=== PATIENT | female | born 1995 | race Two or more races ===

== ENCOUNTER 2020-05-01 10:26 | Outpatient (REF) | payer OTHER, SELFPAY | END 2020-05-01 10:27 | disposition home or self-care (01) | LOC: HO.LAB 10:26 | PROVIDERS: Visit Provider Internal Medicine | DX: Z20.828 Contact with and (suspected) exposure to other viral communicable diseases (principal) | CPT/HCPCS: C9803; U0003 ==

== ENCOUNTER 2021-01-28 10:34 | Outpatient (REF) | payer OTHER, SELFPAY ==
[2021-01-28 11:09] LABS: MANUAL DIFF FLAG NO
[2021-01-28 11:11] LABS: Basophils Percent Auto 0.4 % (0-2); Eosinophils Absolute Auto 0.1 X10*3/uL (0.0-0.4); Eosinophils Percent Auto 1.9 % (0-4); Hematocrit 37.3 % (37-47); Hemoglobin 12.4 g/dl (12.0-16.0); Imm Gran Abs Auto 0.03 X10*3/uL (0.00-0.03); Imm Gran Pct Auto 0.4 % (0.0-0.4); Lymphocytes Absolute Auto 1.6 X10*3/uL (1.2-4.9); Lymphocytes Percent Auto 21.1 % (20-40); Mean Corpuscular HGB Conc 33.2 g/dl (31.0-35.0); Mean Corpuscular Hemoglobin 30.5 pg (27.0-33.0); Mean Corpuscular Volume 91.9 fL (80-98); Mean Platelet Volume 10.4 fL (9.4-12.3); Monocytes Absolute Auto 0.5 X10*3/uL (0.1-1.2); Monocytes Percent Auto 6.5 % (2-11); Neutrophils Absolute Auto 5.2 X10*3/uL (2.0-8.3); Neutrophils Percent Auto 69.7 % (45-73); Platelet Count 349 X10*3/uL (160-400); Red Blood Count 4.06 X10*6/uL (4.20-5.50); Red Cell Distribution Width 12.5 % (11.0-16.0); White Blood Count 7.5 X10*3/uL (4.8-10.8)
[2021-01-28 12:44] LABS: Folate 14.4 ng/mL (> or = 4.0); Vitamin B12 526 pg/mL (200-900)
[2021-01-28 14:08] LABS: Alanine Aminotransferase 9 U/L (0-31); Albumin Level 4.5 g/dL (3.5-5.0); Alkaline Phosphatase 53 U/L (39-117); Anion Gap 12 (12-20); Aspartate Amino Transferase 14 U/L (5-31); Blood Urea Nitrogen 13 mg/dL (9-16); Calcium 9.3 mg/dL (8.4-10.2); Carbon Dioxide 23 mmol/L (22-29); Chloride 109 mmol/L (96-108); Cholesterol 103 mg/dL; Estimated Glomerular Filt Rate > 60; Glucose Fasting 90 mg/dL (60-99); HDL Cholesterol 56 mg/dL; LDL Cholesterol Calculated 42 mg/dl; Potassium 4.7 mmol/L (3.3-5.1); Sodium 139 mmol/L (135-145); Total Protein 7.1 g/dL (6.5-8.0); Triglycerides 28 mg/dL
[2021-01-28 14:31] LABS: TSH reflex Free T4 1.24 uIU/mL (0.32-4.0); Vitamin D 25-OH Total 27.4 ng/mL (>30)
[2021-01-29 14:01] LABS: Leukocytes Stool Qualitative NEGATIVE (NEGATIVE)
== END 2021-01-28 10:35 | disposition home or self-care (01) ==
LOC: HO.LAB 10:34
PROVIDERS: PCP Internal Medicine; Visit Provider Nurse Practitioner Family
DX: R10.9 Unspecified abdominal pain (principal)
CPT/HCPCS: 36415; 80053; 80061; 82306; 82607; 82746; 84443; 85025; 87045; 87046; 87177; 87209; 89055

== ENCOUNTER 2021-01-31 15:28 | Outpatient (REF) | payer OTHER, SELFPAY | END 2021-01-31 15:29 | disposition home or self-care (01) | LOC: HO.LAB 15:28 | PROVIDERS: PCP Internal Medicine; Visit Provider Internal Medicine | DX: Z20.822 Contact with and (suspected) exposure to COVID-19 (principal) | CPT/HCPCS: C9803; U0003; U0005 ==

== ENCOUNTER 2021-02-05 09:25 | Outpatient (REF) | payer OTHER, SELFPAY | END 2021-02-05 09:26 | disposition home or self-care (01) | LOC: HO.LAB 09:25 | PROVIDERS: PCP Internal Medicine; Visit Provider Internal Medicine | DX: Z20.822 Contact with and (suspected) exposure to COVID-19 (principal) | CPT/HCPCS: C9803; U0003; U0005 ==

== ENCOUNTER 2021-02-08 11:20 | Outpatient (REF) | payer OTHER, SELFPAY ==
[2021-02-08 12:16] LABS: COVID-19 Test Negative (Negative)
== END 2021-02-08 11:21 | disposition home or self-care (01) ==
LOC: HO.LAB 11:20
PROVIDERS: PCP Internal Medicine; Visit Provider Internal Medicine
DX: Z20.822 Contact with and (suspected) exposure to COVID-19 (principal)
CPT/HCPCS: 36415; 87635; C9803

== ENCOUNTER 2021-06-04 12:04 | Outpatient (REF) | payer OTHER, SELFPAY ==
--- NOTE | ~2021-06-04 | XR_ITS ---
EXAMINATION: 1. Radiographs left elbow 2. Radiographs left wrist/hand CLINICAL INFORMATION: Pain COMPARISON: Radiographs of the left elbow and left wrist 05/27/2011 TECHNIQUE: 3 views of the left elbow and 4 views of the left wrist/hand were obtained. FINDINGS: Left elbow: No fracture or dislocation. No elbow joint effusion. No significant degenerative changes of the left elbow. No focal soft tissue swelling. No radiopaque foreign body. Left wrist/hand: Visualized portion of the distal left radius and ulna demonstrate no fracture. Carpal rows are well aligned. No carpal bone fracture. No metacarpal or phalangeal fracture. No appreciable degenerative changes of the left wrist or hand. No focal soft tissue swelling. No radiopaque foreign body. XR/XR elbow LT 2V IMPRESSION: -Unremarkable radiographs of the left elbow. -Unremarkable radiographs of the left wrist/hand.
--- NOTE | ~2021-06-04 | XR_ITS ---
EXAMINATION: 1. Radiographs left elbow 2. Radiographs left wrist/hand CLINICAL INFORMATION: Pain COMPARISON: Radiographs of the left elbow and left wrist 05/27/2011 TECHNIQUE: 3 views of the left elbow and 4 views of the left wrist/hand were obtained. FINDINGS: Left elbow: No fracture or dislocation. No elbow joint effusion. No significant degenerative changes of the left elbow. No focal soft tissue swelling. No radiopaque foreign body. Left wrist/hand: Visualized portion of the distal left radius and ulna demonstrate no fracture. Carpal rows are well aligned. No carpal bone fracture. No metacarpal or phalangeal fracture. No appreciable degenerative changes of the left wrist or hand. No focal soft tissue swelling. No radiopaque foreign body. XR/XR hand wrist LT IMPRESSION: -Unremarkable radiographs of the left elbow. -Unremarkable radiographs of the left wrist/hand.
== END 2021-06-04 12:05 | disposition home or self-care (01) ==
LOC: HO.XRAY 12:04
PROVIDERS: PCP Internal Medicine; Visit Provider Physician Assistant
DX: M25.532 Pain in left wrist (principal); M25.522 Pain in left elbow
CPT/HCPCS: 73070; 73110; 73130

== ENCOUNTER 2021-06-10 08:17 | Outpatient (REF) | payer OTHER, SELFPAY ==
[2021-06-10 09:05] LABS: C Reactive Protein 3.61 mg/dL (< or = 0.50); Rheumatoid Factor < 15.0 IU/mL (<15.0)
[2021-06-10 09:30] LABS: Thyroid Stimulating Hormone 0.89 uIU/mL (0.32-4.0)
[2021-06-10 09:34] LABS: Erythrocyte Sedimentation Rate 8 MM/HR (0-20)
[2021-06-12 13:11] LABS: Anti Nuclear Antibody Screen NEGATIVE (NEGATIVE)
[2021-06-14 13:36] LABS: Vitamin D 25-OH, D2 <4 ng/mL; Vitamin D 25-OH, D3 39 ng/mL; Vitamin D 25-OH, Total 39 ng/mL (30-100)
== END 2021-06-10 08:18 | disposition home or self-care (01) ==
LOC: HO.LAB 08:17
PROVIDERS: PCP Internal Medicine; Visit Provider Internal Medicine
DX: M25.532 Pain in left wrist (principal); M25.522 Pain in left elbow; E55.9 Vitamin D deficiency, unspecified; L65.9 Nonscarring hair loss, unspecified; R21 Rash and other nonspecific skin eruption
CPT/HCPCS: 36415; 82306; 84443; 85652; 86038; 86039; 86140; 86431

== ENCOUNTER 2021-07-25 08:18 | Outpatient (REF) | payer OTHER, SELFPAY ==
--- NOTE | 2021-07-25 08:20 | EMG_ITS ---
left median and ulnar motor and sensory studies were performed. Left radial sensory study was performed and paraspinal muscles were tested. IMPRESSION: Mild left ulnar neuropathy across cubital tunnel. MD GRISELDA Roberto/ELODIA / [phone]
== END 2021-07-25 08:19 | disposition home or self-care (01) ==
LOC: HO.NEURO 08:18
PROVIDERS: PCP Internal Medicine; Visit Provider Physician Assistant
DX: R20.2 Paresthesia of skin (principal); R20.0 Anesthesia of skin
CPT/HCPCS: 95886; 95909

== ENCOUNTER 2021-09-10 08:00 | Outpatient (RCR) | payer OTHER, SELFPAY ==
--- NOTE | 2021-08-13 08:48 | MHC.OT.OEV ---
[address] [phone] F: [phone] Occupational Therapy Evaluation Diagnosis: L ARM/ELBOW PAIN Date of Onset: 05/11/20 Attending Provider: Florin Rojo Prescribed Treatment: EVAL AND TREAT History of Current Condition: REPORTS INCREASED NUMBNESS, TINGLING AND SOME PAIN THROUGH LEFT ARM, PARTICULARLY ELBOW THROUGH WRIST, BEGINNING IN MAY 2020. DENIES NEW HOBBY, CHANGE IN ROUTINE OR MECHANISM OF INJURY. PREVIOUSLY HAD AN INJURY SEVEN OR EIGHT YEARS AGO IN WHICH SHE CAUGHT A FAST SOFTBALL IN HER LEFT HAND. SYMPTOMS HAD IMPROVED AFTER THAT INITIAL INJURY. NOW EXPERIENCES NUMBNESS AND TINGLING WORSE WHEN SLEEPING AND EXERCISING. EMG 07/25/21 REVEALS Mild left ulnar neuropathy across cubital tunnel. HAS TRIED CHIROPRACTIC SERVICES IN THE PAST, DISCONTINUED APRIL 2021. WAS ATTENDING WEEKLY. Significant Medical History: N/A Precautions/Contraindications: UNIVERSAL Patient Goals: TO GET LEFT ARM STRONGER Hand Dominance: Right QuickDASH Score: 34% Prior Level of Function and Occupation Self Care, Employment, Leisure: WORKS AT A [employer]. 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 HOBBIES INCLUDE EXERCISING INCLUDING STRENGTH TRAINING, RUNNING ABOUT 5-6 DAYS A WEEK Living Situation, Family and/or Social Support: LIVES WITH MOTHER AND YOUNGER SISTER Current Level of Function and Occupation Self Care, Employment, Leisure: TROUBLE WITH LIFTING WEIGHTS, GRASPING ONTO SOFTBALL BAT. SOME INCREASED NUMBNESS/ TINGLING WITH HOLDING ITEMS DURING IADLs. Sleep: OCCASIONALLY WAKES WITH PAIN AND PINS/NEEDLES IN FOREARM. SLEEPS ON STOMACH, ELBOW FLEXED. Driving: ALTERNATES USE OF LEFT AND RIGHT ARM WITH HOLDING STEERING WHEEL. FATIGUES EASILY. Pain Assessment Pain Score: Pain Scale Used: Numeric (0 - 10) Pain Location and Description: L FOREARM, THENAR EMINENCE; NUMBNESS/TINGLING MILD AT REST; MODERATE TO SEVERE AT TIMES MOST OFTEN NO PAIN Aggravating Factors: SLEEPING, LIFTING/ CARRYING ITEMS Alleviating Factors: REPOSITIONING SELF, ICE, MUSCLE RELAXOR; WEARING WRIST BRACE WHEN PLAYING SOFTBALL Skin and Soft Tissue Assessment Skin and Soft Tissue: Comments: PETITE FRAME. NO SIGNS OF MUSCLE ATROPHY THROUGH LUE YET STATES INCREASED DIFFICULTIES WITH WEIGHT LIFTING AND EXPERIENCING FATIGUE THROUGH LUE. Nerve assessment Ulnar Nerve: Left Impaired Median Nerve: Radial Nerve: Comments: IDENTIFIED ON EMG REPORT; CONTINUE TO ASSESS FOR ADDITIONAL NERVE IMPINGEMENT AREAS Sensory Assessment Temperature: Light Touch: Proprioception: Vibration: Comments: SEMMES BARBARA INTACT IN ALL AREAS; REPORTS SOME SENSITIVITIES TO VIBRATION, REBOUND FROM SOFTBALL CAUGHT IN LEFT HAND Edema Assessment Upper Extremity: WNL Lower Extremity: Comments: CIRCUMFERENCE OF WRIST, DISTAL TO US: LEFT 13.4 CM, RIGHT 13.7 CM Dexterity Assessment Dexterity: WNL Comments: Special Tests Comments: (+) TINELS AT ELBOW AROM(PROM) Strength Shoulder Flexion: Extension: Abduction: Internal Rotation: External Rotation: Comments: WNL Flexion: L 5/5, R 5/5 Extension: Abduction: L 5/5, L5/5 Internal Rotation: External Rotation: Comments: Elbow Flexion: Extension: Pronation: Supination: Comments: WNL Flexion: L 5/5, R 5/5 Extension: L 5/5, R 5/5 Pronation: Supination: Comments: SUBJECTIVELY REPORTS INCREASED WEAKNESS THROUGH L FOREARM Wrist Flexion: Extension: Ulnar Deviation: Radial Deviation: Comments: WNL Flexion: Extension: Ulnar Deviation: Radial Deviation: Comments: Thumb Thumb CMC Flexion: Thumb MCP Flexion: Thumb IP Flexion: Radial Abduction: Palmar Abduction: [place] (K[place]andji 0-10): L 10/10, R 10/10 Comments: Digits Index MCP: PIP: DIP: Long MCP: PIP: DIP: Ring MCP: PIP: DIP: Small MCP: PIP: DIP: Comments: Gross Grasp: L 52, R 70 Lateral Pinch: L 18, R 19 Two-Point Pinch: L 9, R 9 Three-Jaw Sandeep: L 12, R 12 Comments: Patient Education Primary Language: Spanish Parts Room Assistant Required: No Current Knowledge: Understands information with skills for self-management Teaching Method: Demonstration Handouts Verbal Education Needs Identified on Evaluation: ADL's Disease Information Equipment Use Exercise Pain Safety How did patient/family demonstrate learning? Patient demonstrates Patient verbalizes Barriers to Learning: None Readiness for Learning: Accepting Who was educated? Patient Comments: Plan of Care Assessment: MS HARDING RECENTLY HAD AN EMG STUDY COMPLETED FOR PERSISTENT LUE NUMBNESS AND TINGLING FOR ABOUT A YEAR AND A HALF. HER RESULTS SHOW MILD ULNAR NERVE NEUROPATHY ACROSS CUBITAL TUNNEL. SHE STATES HER SYMPTOMS ARE INTERFERING WITH HER DAILY ACTIVITIES INCLUDING EXERCISING AND PLAYING SOFTBALL. SHE HAS NOTICED INCREASED FATIGUE AND WEAKNESS THROUGH HER NON DOMINANT LUE OVER THE LAST SEVERAL MONTHS. A 34% LIMITATION IS REPORTED PER THE QUICK DASH ASSESSMENT. ONGOING SKILLED OT IS WARRANTED TO ADDRESS LUE STRENGTH, Pt EDUCATION, IADLs INCLUDING SLEEP AND HOBBIES, AND SYMPTOM MANAGEMENT. 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 Goals: L GROSS GRASP >65 POUNDS QUICK DASH <20% IND ELBOW PROTECTION WITH IADLs REPORT MILD PARASTHESIA WITH DAILY ACTIVITIES/ SLEEPING Frequency and Duration: The patient will be seen 1X/WEEK FOR 6 WEEKS Treatment Plan: Therapeutic Exercise Therapeutic Activity Home Exercise Program Splinting Neuro Re-ed Patient Education Desensitization/Sensory Re-ed Edema Control ADL Training Ultrasound NMES Iontophoresis Paraffin Fluidotherapy MHP Cold Packs Joint Mobilization Soft Tissue Mobilization Kinesiotaping Other (see comments) Electronically Signed By: ARABELLA BENTLEY OTR/L Reviewed/agree with student documentation: N/A Therapist: Please sign and return to therapist, Thank you for your referral.
--- NOTE | 2021-09-10 10:00 | MHC.OT.DC ---
[address] [phone] F: [phone] Occupational Therapy Discharge Note Provider: Florin Rojo PA-C Diagnosis: L ARM/ELBOW PAIN Date of Evaluation: 08/13/21 Date of Discharge: 09/10/21 Treatments to Date: 6 Discharge Status: Achieved Goals Improved Function Independent with HEP Discharge Summary: Eryn was seen for course of OT to address problems related to ulnar nerve injury. Goals have been met, she has good follow through w/ HEP and joint protection, and very occasional low pain only. She is progressing exercise routine and more activities (rec softball). Electronically Signed By: Britt Denney OTR/Victorino CHT Reviewed/agree with student documentation: N/A Therapist: Please Sign and return to therapist, thank you for your referral.
== END 2021-09-17 15:10 | disposition home or self-care (01) ==
LOC: HO.OT 08:00
PROVIDERS: PCP Internal Medicine; Visit Provider Physician Assistant
DX: R29.898 Other symptoms and signs involving the musculoskeletal system (principal); R20.2 Paresthesia of skin
CPT/HCPCS: 97033; 97035; 97110; 97112; 97140; 97166

== ENCOUNTER 2022-01-30 07:27 | Emergency (ER) | payer OTHER, SELFPAY ==
--- NOTE | ~2022-01-30 | US_ITS ---
EXAMINATION: US PELVIS CLINICAL INFORMATION: Pelvic pain COMPARISON: None TECHNIQUE: Ultrasound of the pelvis is performed using both transabdominal and transvaginal transducers along with Doppler. Transvaginal imaging is performed due to inadequate visualization transabdominally. Transabdominal transvaginal scan. Uterus is 6.2 x 3.6 x 4.7 cm. The endometrial thickness is 1.3 cm. This may be normal for later phase of the cycle. The right ovary is 4.5 x 3.6 x 4 cm. Volume 20 mL. Associated with the right ovary is a 2.9 x 2.2 cm cyst. There are some internal echoes but no internal vascularity is demonstrated. This may be a mildly hemorrhagic cyst. Consider follow-up after one to 2 cycles Other small follicles are noted. Ovarian vascularity is within normal limits. Left ovary is not seen. Free fluid is seen in the left adnexa. US/US pelvic and transvaginal IMPRESSION: Free fluid seen in the left adnexa. Left ovary is not seen 2.9 x 2.2 cm mildly complex cyst associated with right ovary. Endometrial thickness 1.3 cm. This may be normal for later phase of the cycle
[2022-01-30 07:51] VITALS: BP 139/84; PULSE 88; RESP 18; TEMP 37.1; O2SAT 98; BMI 21.0
[2022-01-30 08:56] LABS: Appearance Urine Clear; Color Urine Yellow; Glucose Urine UA Negative (Negative); Leukocyte Esterase Urine Trace (Negative); Nitrite Urine Negative (Negative); Specific Gravity - Urine 1.025 (1.005-1.025); UMIC TRIGGER UACC YES; Urine Blood Negative (Negative); Urine Ketones Negative (Negative); Urine Protein Negative (Neg-Trace)
[2022-01-30 08:58] LABS: UPreg QC Valid YES; Urine Pregnancy NEGATIVE (NEGATIVE)
[2022-01-30 09:00] VITALS: BP 118/72; PULSE 81; RESP 14; TEMP 36.8; O2SAT 99
[2022-01-30 09:01] LABS: Bacteria Urine Trace (None Seen); Hyaline Casts Urine 0-2 /LPF (0-2); RBC Urine 0-2 /HPF (0-2); WBC Urine 0-5 /HPF (0-5)
[2022-01-30 09:12] LABS: MANUAL DIFF FLAG NO
[2022-01-30 09:14] LABS: Basophils Percent Auto 0.4 % (0-2); Eosinophils Absolute Auto 0.3 X10*3/uL (0.0-0.4); Eosinophils Percent Auto 2.9 % (0-4); Hematocrit 38.9 % (37.0-47.0); Hemoglobin 13.4 g/dl (12.0-16.0); Imm Gran Abs Auto 0.03 X10*3/uL (0.00-0.03); Imm Gran Pct Auto 0.3 % (0.0-0.4); Lymphocytes Absolute Auto 1.3 X10*3/uL (1.2-4.9); Lymphocytes Percent Auto 12.6 % (20-40); Mean Corpuscular HGB Conc 34.4 g/dl (31.0-35.0); Mean Corpuscular Hemoglobin 30.9 pg (27.0-33.0); Mean Corpuscular Volume 89.8 fL (80.0-98.0); Mean Platelet Volume 10.2 fL (9.4-12.3); Monocytes Absolute Auto 0.6 X10*3/uL (0.1-1.2); Monocytes Percent Auto 5.4 % (2-11); Neutrophils Absolute Auto 8.1 x10*3/uL (2.0-8.3); Neutrophils Percent Auto 78.4 % (45-73); Platelet Count 352 X10*3/uL (160-400); Red Blood Count 4.33 X10*6/uL (4.20-5.50); Red Cell Distribution Width 12.5 % (11.0-16.0); White Blood Count 10.4 X10*3/uL (4.8-10.8)
--- NOTE | 2022-01-30 09:20 | ED_ITS ---
HPI - Female Genitourinary General Chief complaint: Abdominal Pain Stated complaint: Pelvic Pain Time Seen by Provider: 01/30/22 08:48 Source: patient Mode of arrival: ambulatory Limitations: no limitations History of Present Illness HPI Narrative: seen by [facility] OB they think this might be endometriosis but she has MRI for next month and has not had laparascopy. The patient cannot wait for MRI and was hoping we could do one today I did explain I cannot do one emergently in the ED today. She understands. MD elicited complaint: pelvic pain Pertinent past history: other (possible endometriosis) Onset (ago): year(s) (2) Location of symptoms: suprapubic Severity: moderate Quality of pain: cramping Consistency: intermittent Exacerbating factors: menstrual period Relieving factors: none Associated symptoms: denies other symptoms Treatment prior to arrival: none Patient : No Related Data Previous Rx's Medication Instructions Recorded tizanidine 2 mg tablet 2 mg PO BID PRN muscle spasticity 06/04/21 10 days #20 tabs sumatriptan succinate 25 mg tablet 25 mg PO Q2-4H PRN migraine 06/10/21 headache 30 days #9 tabs ondansetron 4 mg disintegrating 4 mg PO Q8H PRN nausea and 01/30/22 tablet vomiting #20 tabs tramadol 50 mg tablet 50 mg PO BID PRN pain #20 tabs 01/30/22 Allergies Allergy/AdvReac Type Severity Reaction Status Date / Time seasonal Allergy Unknown stuffy Uncoded 06/10/21 07:52 nose, SOB, itch eye Review of Systems Review of Systems: Constitutional : No Weight loss, No Fever, No Chills ENT/Mouth : No sore throat, No Rhinorrhea Eyes: No Swelling, No Redness Cardiovascular : No Chest Pain, No SOB, NoEdema Respiratory : No Cough, No Sputum, No Wheezing Gastrointestinal : no Nausea, no Vomiting, no Diarrhea, positive abdominal Pain, No Hematochezia, No Melena Genitourinary : No Dysuria, No Urinary Frequency, No Hematuria, No Urgency , pos pelvic pain Musculoskeletal : No joint pain, No Myalgias, No Joint Swelling Skin : No Skin Lesions, No rash Neuro : No Weakness, No Numbness, No Dizziness, No Headache Psych : No Anxiety/Panic, No Depression Heme/Lymph: No Bruising, No Lymphadenopathy Endocrine : No Polyuria, No Polydipsia All other systems reviewed and are negative. [facility] Past Medical History Attestation statement: The following information was validated with the patient. Medical History Hair loss Migraine headache Physical exam Rash Surgical History History of wisdom tooth extraction Family History Family History Mother No problems noted. Father Heart abnormality Social History Social History Housing: House Alcohol intake: current Alcohol intake frequency: a few times a week Patient Tobacco Use Status: Never used Tobacco e-Cigarette/Vaping Use: Never Used Second Hand Smoke Exposure: No Advance Directives: No Advance Directives Information Provided: No Patient : No service: No Current occupational status: employed Physical Exam Vital Signs: Vital Signs: Last Vital Signs Temp 98.3 F 01/30/22 10:34 Pulse 74 01/30/22 10:34 Resp 14 01/30/22 10:34 BP 110/70 01/30/22 10:34 Pulse Ox 99 01/30/22 10:34 O2 Del Method 01/30/22 10:34 BMI result Body Mass Index 21.0 Appearance: Alert. Oriented X3. No acute distress. Eyes: Pupils equal, round and reactive to light. ENT: Pharynx normal. Neck: Normal inspection. Neck supple. CVS: Normal heart rate and rhythm. Pulses normal. Respiratory: No respiratory distress. Breath sounds normal. Abdomen: Soft and mild suprapubic ttp but no rebound no guarding, moving without issue Skin: Skin warm and dry. Normal skin color. Normal skin turgor. Extremities: No lower extremity edema. No calf ttp Neuro: Oriented X 3. No motor deficit. No sensory deficit. Course Course Course Narrative: discussed findings with Dr. Hennessy can follow up as outpatient MDM - Female Genitourinary MDM Narrative Medical decision making narrative: 26 yo female with hx of lonstanding pelvic pain possible endometriosis this is not different than her prior pain it is suprapubic given chronicity doubt appendicitis. She has had negative STI testing. She did want MRI but at this time I cannot obtain one emergently she is scheduled for next month. Will obtain US and labs/UA to evaluate for cyst. Dispo per results and findings. Lab Data Result diagrams: 01/30/22 09:08 01/30/22 09:08 Labs: Lab Results 01/30/22 01/30/22 01/30/22 Range/Units 08:15 08:15 09:08 WBC 10.4 (4.8-10.8) X10*3/uL RBC 4.33 (4.20-5.50) X10*6/uL Hgb 13.4 (12.0-16.0) g/dl Hct 38.9 (37.0-47.0) % MCV 89.8 (80.0-98.0) fL MCH 30.9 (27.0-33.0) pg MCHC 34.4 (31.0-35.0) g/dl RDW 12.5 (11.0-16.0) % Plt Count 352 (160-400) X10*3/uL MPV 10.2 (9.4-12.3) fL Immature Gran % (Auto) 0.3 (0.0-0.4) % Neut % (Auto) 78.4 H (45-73) % Lymph % (Auto) 12.6 L (20-40) % [place] % (Auto) 5.4 (2-11) % Eos % (Auto) 2.9 (0-4) % Baso % (Auto) 0.4 (0-2) % Lymph # (Auto) 1.3 (1.2-4.9) X10*3/uL [place] # (Auto) 0.6 (0.1-1.2) X10*3/uL Eos # (Auto) 0.3 (0.0-0.4) X10*3/uL Baso # (Auto) 0.0 (0.0-0.2) X10*3/uL Abs Immat Gran (auto) 0.03 (0.00-0.03) X10*3/uL Absolute Neuts (auto) 8.1 (2.0-8.3) x10*3/uL Absolute Nucleated RBC 0.000 (0.0-0.012) X10*3/uL Nucleated RBC % (auto) 0.0 (0.0-0.2) /100WBC Sodium (135-145) mmol/L Potassium (3.3-5.1) mmol/L Chloride (96-108) mmol/L Carbon Dioxide (22-29) mmol/L Anion Gap (12-20) BUN (9-16) mg/dL Creatinine (0.5-1.4) mg/dL Estim Creat Clear Calc Estimated GFR Random Glucose (60-115) mg/dL Calcium (8.4-10.2) mg/dL Urine Color Yellow Urine Appearance Clear Urine pH 6.0 (5.0-9.0) Ur Specific [place] 1.025 (1.005-1.025) Urine Protein Negative (Neg-Trace) mg/dL Urine Glucose (UA) Negative (Negative) mg/dL Urine Ketones Negative (Negative) mg/dL Urine Blood Negative (Negative) Urine Nitrite Negative (Negative) Ur Leukocyte Esterase Trace H (Negative) Urine RBC 0-2 (0-2) /HPF Urine WBC 0-5 (0-5) /HPF Ur Squamous Epith Cells 3-5 (0-2) /HPF Urine Bacteria Trace (None Seen) Hyaline Casts 0-2 (0-2) /LPF Urine Test NEGATIVE (NEGATIVE) 01/30/22 Range/Units 09:08 WBC (4.8-10.8) X10*3/uL RBC (4.20-5.50) X10*6/uL Hgb (12.0-16.0) g/dl Hct (37.0-47.0) % MCV (80.0-98.0) fL MCH (27.0-33.0) pg MCHC (31.0-35.0) g/dl RDW (11.0-16.0) % Plt Count (160-400) X10*3/uL MPV (9.4-12.3) fL Immature Gran % (Auto) (0.0-0.4) % Neut % (Auto) (45-73) % Lymph % (Auto) (20-40) % [place] % (Auto) (2-11) % Eos % (Auto) (0-4) % Baso % (Auto) (0-2) % Lymph # (Auto) (1.2-4.9) X10*3/uL [place] # (Auto) (0.1-1.2) X10*3/uL Eos # (Auto) (0.0-0.4) X10*3/uL Baso # (Auto) (0.0-0.2) X10*3/uL Abs Immat Gran (auto) (0.00-0.03) X10*3/uL Absolute Neuts (auto) (2.0-8.3) x10*3/uL Absolute Nucleated RBC (0.0-0.012) X10*3/uL Nucleated RBC % (auto) (0.0-0.2) /100WBC Sodium 139 (135-145) mmol/L Potassium 5.1 (3.3-5.1) mmol/L Chloride 106 (96-108) mmol/L Carbon Dioxide 21 L (22-29) mmol/L Anion Gap 17 (12-20) BUN 14 (9-16) mg/dL Creatinine 0.80 (0.5-1.4) mg/dL Estim Creat Clear Calc 85.7 Estimated GFR > 60 Random Glucose 93 (60-115) mg/dL Calcium 9.6 (8.4-10.2) mg/dL Urine Color Urine Appearance Urine pH (5.0-9.0) Ur Specific [place] (1.005-1.025) Urine Protein (Neg-Trace) mg/dL Urine Glucose (UA) (Negative) mg/dL Urine Ketones (Negative) mg/dL Urine Blood (Negative) Urine Nitrite (Negative) Ur Leukocyte Esterase (Negative) Urine RBC (0-2) /HPF Urine WBC (0-5) /HPF Ur Squamous Epith Cells (0-2) /HPF Urine Bacteria (None Seen) Hyaline Casts (0-2) /LPF Urine Test (NEGATIVE) Discharge Plan Discharge Clinical Impression: Ovarian cyst Qualifiers: Laterality: right Qualified Code(s): N83.201 - Unspecified ovarian cyst, right side Patient Disposition: Home, Self-Care Instructions: Ovarian Cyst (ED) Additional Instructions: return to ED for any worsening symptoms or concerns please follow up with your OBGYN please follow up with TECHNIQUE: Ultrasound of the pelvis is performed using both transabdominal and transvaginal transducers along with Doppler. Transvaginal imaging is performed due to inadequate visualization transabdominally. Transabdominal transvaginal scan. Uterus is 6.2 x 3.6 x 4.7 cm. The endometrial thickness is 1.3 cm. This may be normal for later phase of the cycle. The right ovary is 4.5 x 3.6 x 4 cm. Volume 20 mL. Associated with the right ovary is a 2.9 x 2.2 cm cyst. There are some internal echoes but no internal vascularity is demonstrated. This may be a mildly hemorrhagic cyst. Consider follow-up after one to 2 cycles Other small follicles are noted. Ovarian vascularity is within normal limits. Left ovary is not seen. Free fluid is seen in the left adnexa. US/US pelvic and transvaginal IMPRESSION: Free fluid seen in the left adnexa. Left ovary is not seen ? 2.9 x 2.2 cm mildly complex cyst associated with right ovary. ? Endometrial thickness 1.3 cm. This may be normal for later phase of the cycle Prescriptions: New ondansetron 4 mg tablet,disintegrating 4 mg PO Q8H PRN (Reason: nausea and vomiting) Qty: 20 0RF tramadol 50 mg tablet 50 mg PO BID PRN (Reason: pain) Qty: 20 0RF No Action sumatriptan succinate 25 mg tablet 25 mg PO Q2-4H PRN (Reason: migraine headache) 30 Days Qty: 9 1RF Rx Instructions: do not exceed 8 doses per 24 hrs tizanidine 2 mg tablet 2 mg PO BID PRN (Reason: muscle spasticity) 10 Days Qty: 20 0RF Stand Alone Forms: Work/School Release
[2022-01-30 09:35] LABS: Anion Gap 17 (12-20); Blood Urea Nitrogen 14 mg/dL (9-16); Calcium 9.6 mg/dL (8.4-10.2); Carbon Dioxide 21 mmol/L (22-29); Chloride 106 mmol/L (96-108); Creatinine Clr Calc Pharmacy 85.7; Estimated Glomerular Filt Rate > 60; Glucose Random 93 mg/dL (60-115); Potassium 5.1 mmol/L (3.3-5.1); Sodium 139 mmol/L (135-145)
--- NOTE | 2022-01-30 09:42 | PC.NURSE ---
patient a/ox4 / aileen . heart rate regular at 80 beats per minute . lungs clear . abdomen soft , c/o pain 2/10 when pelvic /abdomen region palpated . positive bowel sounds throughout . no c/o of dysuria or hematuria reported by patient . skin pink warm and dry . patient reports this problem for the last two years currently has an outpatient MRI scheduled in March to rule out endometriosis. Patients lab and urine sent . patient is going to ultrasound . patient aware of plan of care .
[2022-01-30 10:34] VITALS: BP 110/70; PULSE 74; RESP 14; TEMP 36.8; O2SAT 99
--- NOTE | 2022-01-30 11:10 | P.CONOB_ITS ---
MANIPULATIVE THERAPY SPECIALIST - CN: HPI Data of Consult Consult date: 01/30/22 Primary Care Provider: Susana Mullins MD Consult Narrative Narrative: I was consulted on Eryn Massey who is a 26 year old female presented emergency room requesting pelvic MRI, the patient is being followed up by [facility] nursing project coordinator with the working diagnosis of of endometriosis , pelvic MRI is scheduled .The patient does not want to wait for MRI and was hoping we could do one today, the patient is having mild suprapubic pain is worse during her menstrual cycle and improves afterward. No vaginal discharge, no other additional concerns. Workup done emergency room included CBC, chemistry , urine test was negative, and a pelvic ultrasound. cc:: CC: OB PMFSH Past Medical History Medical History Hair loss Migraine headache Physical exam Rash Family History Family History Mother No problems noted. Father Heart abnormality Surgical History Surgical History History of wisdom tooth extraction Social History Social History Housing: House Alcohol intake: current Alcohol intake frequency: a few times a week Patient Tobacco Use Status: Never used Tobacco e-Cigarette/Vaping Use: Never Used Second Hand Smoke Exposure: No Advance Directives: No Advance Directives Information Provided: No Patient : No service: No Current occupational status: employed Meds Allergies Allergy/AdvReac Type Severity Reaction Status Date / Time seasonal Allergy Unknown stuffy Uncoded 06/10/21 07:52 nose, SOB, itch eye MANIPULATIVE THERAPY SPECIALIST Physical Exam Vitals Vital signs: Temp Pulse Resp BP Pulse Ox O2 Del Method 98.3 F 74 14 110/70 99 01/30/22 10:34 01/30/22 10:34 01/30/22 10:34 01/30/22 10:34 01/30/22 10:34 01/30/22 10:34 BMI result Body Mass Index 21.0 Additional Comments: Reported by Dr. Gunderson as the following Soft and mild suprapubic ttp but no rebound no guarding, moving without issue MANIPULATIVE THERAPY SPECIALIST - Results Labs CBC & Chem 7: 01/30/22 09:08 01/30/22 09:08 Labs: Short CBC 01/30/22 Range/Units 09:08 WBC 10.4 (4.8-10.8) X10*3/uL Hgb 13.4 (12.0-16.0) g/dl Hct 38.9 (37.0-47.0) % Plt Count 352 (160-400) X10*3/uL BMP 01/30/22 09:08 Sodium 139 Potassium 5.1 Chloride 106 Carbon Dioxide 21 L BUN 14 Creatinine 0.80 Calcium 9.6 Urine 01/30/22 01/30/22 Range/Units 08:15 08:15 Urine Color Yellow Urine Appearance Clear Urine pH 6.0 (5.0-9.0) Ur Specific [place] 1.025 (1.005-1.025) Urine Protein Negative (Neg-Trace) mg/dL Urine Glucose (UA) Negative (Negative) mg/dL Urine Test NEGATIVE (NEGATIVE) Imaging US - abdomen: Radiologist's impression: ITS Impressions Pelvic/Transvag US 01/30/22 10:18 IMPRESSION: Free fluid seen in the left adnexa. Left ovary is not seen 2.9 x 2.2 cm mildly complex cyst associated with right ovary. Endometrial thickness 1.3 cm. This may be normal for later phase of the cycle Assessment and Plan (1) Complex ovarian cyst: Status: Acute Recommended to Dr. Gunderson the following: outpatient follow-up regarding complex ovarian cyst, instructions to be given to be patient to come back to emergency room in case of pelvic pain and/ or heavy vaginal bleeding. I spent a total of 20 minutes reviewing the chart, communicating with the ER provider and documenting in the medical record
--- NOTE | 2022-01-30 11:55 | PC.NURSE ---
patient a/ox4 . went over discharge instructions as ordered by provider . follow up with OBGYN as ordered . Return to Ed if symptoms worsen . no questions at this time .
== END 2022-01-30 11:55 | disposition home or self-care (01) ==
PROVIDERS: Emergency Provider Emergency Medicine; PCP Internal Medicine
DX: N83.201 Unspecified ovarian cyst, right side (principal); R10.2 Pelvic and perineal pain; Z79.899 Other long term (current) drug therapy
CPT/HCPCS: 36415; 76830; 76856; 80048; 81001; 81025; 85025; 99284